=== PATIENT | female | born 1955 | race Caucasian/White ===

== ENCOUNTER 2016-07-10 12:44 | Outpatient (CLI) | payer BC, OTHER ==
[2016-07-10 16:23] LABS: #Basophils 0.1 thou/uL (0.0-0.2); #Eosinphils 0.5 thou/uL (0.0-0.7); #Lymphocytes 1.6 thou/uL (1.20-3.40); #Monocytes 0.5 thou/uL (0.11-0.59); #Neutrophils 3.2 thou/uL (1.40-6.50); %Eosinophils 8.4 % (0.0-10.0); %Lymphocytes 27.3 % (21.0-51.0); %Monocytes 7.9 % (0.0-10.0); %Neutrophils 54.5 % (42.0-75.0); Hemoglobin 12.9 g/dL (12.0-16.0); Mean Corpuscular HGB CONC 33.6 g/dL (32.0-36.0); Mean Corpuscular Hemoglobin 31.8 pg (27.0-31.0); Mean Corpuscular Volume 94.6 fl (81.0-99.0); Mean Platelet Volume 5.8 fL (7.4-10.4); Platelet Count 270 thou/uL (130-400); RBC Distribution Width 11.4 % (11.5-14.5); Red Blood Cell (RBC) Count 4.07 mill/uL (4.20-5.40); White Blood Cell (WBC) Count 5.8 thou/uL (4.8-10.8)
[2016-07-10 16:51] LABS: ALT (SGPT) 11 U/L (0-55); AST (SGOT) 22 U/L (5-34); Albumin 4.4 g/dL (3.4-4.8); Alkaline Phosphatase 59 U/L (40-150); Anion Gap 14 mmol/L (10-20); BUN (Urea Nitrogen) 14 mg/dL (9.8-20.1); Bilirubin, Total 1.2 mg/dL (0.2-1.2); Calc. Creatinine Clearance 0 mL/min (70-130); Calcium 9.3 mg/dL (7.8-10.44); Carbon Dioxide 27 mmol/L (23-31); Cardiac Risk 3.9 (Less than 4.5); Chloride 105 mmol/L (98-107); Cholesterol 244 mg/dL (< 200 Desired); Estimated GFR-MDRD 74; Globulin 2.6 g/dL (2.4-3.5); Glucose 88 mg/dL (80-115); HDL Cholesterol 63 mg/dL (>60 Neg Risk); LDL Cholesterol, Calculated 166 mg/dL; Potassium 4.8 mmol/L (3.5-5.1); Sodium 141 mmol/L (136-145); Triglycerides 73 mg/dL (Less than 150)
[2016-07-10 19:00] LABS: Iron 95 ug/dL (50-170); Iron Binding Capacity, Total 330 mcg/dL (265-497)
== END 2016-07-10 12:45 ==
LOC: LABLEX 12:44
PROVIDERS: ATTEND Family Medicine
DX: E78.00 Pure hypercholesterolemia, unspecified (principal); R53.83 Other fatigue; Z80.8 Family history of malignant neoplasm of other organs or systems
CPT/HCPCS: 80053; 80061; 83540; 83550; 84443; 85025